=== PATIENT | male | born 2000 | race Two or more races ===

== ENCOUNTER 2024-08-11 18:59 | Emergency (ER) | payer MEDICAID, SELFPAY ==
--- NOTE | 2024-08-11 19:03 | XR_ITS ---
EXAMINATION: Ankle, left 3 views . Technique: Ankle AP, oblique, lateral 3 views Date and time of exam: August 11, 2024 at 1910 hrs. Indications: Injury to the ankle today, ankle pain. Findings: No acute fracture No dislocation No foreign body Impression: No acute fracture
[2024-08-11 19:53] VITALS: BP 114/72; PULSE 88; RESP 18; TEMP 36.9; O2SAT 99; BMI 36.3
--- NOTE | 2024-08-11 20:04 | EDNOTE_ITS ---
Lower Extremity Injury RME/HPI General Chief Complaint: Ankle/Foot Injury Stated Complaint: INJURY TO LEFT ANKLE TODAY Time Seen by Provider: 08/11/24 19:16 Arrival date/time: 08/11/24 18:59 RME / HPI RME / HPI Narrative: 24-year-old male patient with no significant medical history, came in for evaluation regarding left ankle injury. Patient accidentally twisted the left ankle resulting to swelling, tenderness, severity mild. Patient is able to ambulate except for mild limping. Incident happened few minutes prior to ER visit. Denies any other injury no medication was taken prior to arrival. Related Data Previous Rx's ?Medication ?Instructions ?Recorded naproxen 500 mg tablet (Naprosyn) 500 mg PO BID PRN pain #30 tabs 01/01/19 ibuprofen 800 mg tablet 800 mg PO TID PRN pain #30 tabs 08/11/24 Allergies Allergy/AdvReac Type Severity Reaction Status Date / Time azithromycin Allergy Severe RASH, Unverified 08/11/24 19:02 SWELLING cefuroxime [From Ceftin] Allergy Severe Rash Verified 08/11/24 19:02 Review of Systems Review of Systems Narrative Review of Systems: Review of system reviewed and within normal limits except mentioned in HPI ED Exam Narrative Physical exam: VITAL SIGNS: Reviewed. GENERAL APPEARANCE: Alert and interactive, follows commands, no acute distress, HEAD AND FACE: Non-traumatic. ENT: PERRL, pink conjunctivitis, eyelid no trauma, Mucous membrane moist. MUSCULOSKELETAL: low back nontender, full range of motion. EXTREMITIES: Left ankle swelling, tenderness, with limitation range of motion due to pain. Distal neurovascular status intact on the left foot SKIN: Color pink, dry, no rash, no lacerations, no abrasions, no contusions. LYMPHATICS: Deferred. Course Quality Measures none Orders Category Date Time Status XR ankle LT 2V Stat Exams 08/11/24 19:03 Completed Vital Signs Vital signs: Vital Signs Temperature 98.5 F 08/11/24 19:53 Pulse Rate 88 08/11/24 19:53 Respiratory Rate 18 08/11/24 19:53 Blood Pressure 114/72 08/11/24 19:53 Pulse Oximetry (%) 99 08/11/24 19:53 Oxygen Delivery Method Room Air 08/11/24 19:53 Extremity Injury, Lower MDM Narrative MDM Narrative:: 24-year-old male patient with no significant medical history, came in for evaluation regarding left ankle injury. Patient accidentally twisted the left ankle resulting to swelling, tenderness, severity mild. Patient is able to ambulate except for mild limping. Incident happened few minutes prior to ER visit. Denies any other injury no medication was taken prior to arrival. X-ray of the left ankle came back with no fracture or dislocation and in good alignment. Results discussed with the patient. Patient foot/ankle was wrapped with Oli. Patient was not supplied with crutches since patient is able to ambulate. Patient data External records reviewed:: None Clinical information provided by:: patient Social determinants that could affect healthcare access:: none Patient has the following chronic illnesses:: None How is presenting disease/condition affected by chronic disease/condition?: no chronic disease Evaluation data The following diagnostics were reviewed and interpreted by me:: radiology exam(s) Lab and/or radiology exams considered but not ordered:: None Interpretation Summary: X-ray of the ankle is negative for any acute pathology. Medications / Prescriptions Medications or Prescriptions considered but not ordered:: None Medication administrations:: None Consultations Consultation(s) initiated? (list below): No Diagnosis Extremity Injury, Lower Differential Diagnosis: ankle sprain and strain and ankle fracture Most likely diagnosis given after review of the tests above:: Ankle sprain Admission Indicated Admission indicated?: not indicated Explain why admission is indicated or not indicated:: Stable Admission Request Was there a request for admission?: No Disposition Plan Disposition Plan: Discharge Discharge Attestation Discharge Attestation: The patient and all family members were given an opportunity to ask questions and understood the discharge instructions. Discharge instructions specifically effects, indications for sooner follow up or return to the emergency department, and the expected course of current diagnosis. Patient condition: Stable Discharge Plan Plan Patient Disposition: HOME (Self Care) Disposition Comment: Stable Prescriptions/Referrals Prescriptions/Med Rec: New ibuprofen 800 mg tablet 800 mg PO TID PRN (Reason: pain) Qty: 30 0RF No Action naproxen [Naprosyn] 500 mg tablet 500 mg PO BID PRN (Reason: pain) Qty: 30 0RF Referrals: No Primary/Family,Physician [Primary Care Provider] - In 1 week Problem List Clinical Impression: Left ankle sprain Patient/Caregiver Discharge Instructions Discharge Activity: activity as tolerated Education Materials: Self-Care for Strains and Sprains Additional Instructions: Thank you for the opportunity for serving you today. You are stable for discharged . You are advised to: Follow-up with your PCP in 1 to 2 days Return to ED for worsening of symptoms Increase oral fluids Take medication as prescribed Elevate leg as needed Wear Oli wrap as needed You may apply ice for 15 minutes 3 times a day as needed Print Language: Colombian Stand Alone Forms: [facility] Award Info., Patient Portal Info Letter JANNY/MILAGROS Supervising Physician PA/MILAGROS Supervising Physician: MD Marin
== END 2024-08-11 20:13 | disposition home or self-care (01) ==
PROVIDERS: Emergency Provider Emergency Medicine
DX: S93.402A Sprain of unspecified ligament of left ankle, initial encounter (principal); X50.1XXA Overexertion from prolonged static or awkward postures, initial encounter
CPT/HCPCS: 73600; 99283